=== PATIENT | female | born 1990 | race Caucasian/White ===

== ENCOUNTER 2023-01-10 09:14 | Emergency (ER) | payer OTHER ==
[~2023-01-10] VITALS: Ht 172.7 cm; Wt 54.2 kg
[2023-01-10 11:08] LABS: HEMATOCRIT 39.3 % (36.0-47.0); HEMOGLOBIN 13.3 g/dl (12.0-15.5); MEAN CORPUSCULAR HGB CONC 33.8 g/dl (32.0-36.5); MEAN CORPUSCULAR VOLUME 94.5 fl (80.0-96.0); PLATELET COUNT, AUTOMATED 293 10^3/uL (150-450); RED BLOOD COUNT 4.16 10^6/uL (4.00-5.40); WHITE BLOOD COUNT 7.2 10^3/uL (4.0-10.0)
[2023-01-10 11:25] LABS: HCG, SERUM QUALITATIVE POSITIVE (NEGATIVE)
[2023-01-10 12:58] VITALS: BP 91/62
== END 2023-01-10 13:06 | disposition home or self-care (01) ==
LOC: M ED 09:14
DX: O03.4 Incomplete spontaneous abortion without complication (principal); N93.9 Abnormal uterine and vaginal bleeding, unspecified; Z3A.01 Less than 8 weeks gestation of pregnancy

== ENCOUNTER → 2023-01-12 | Outpatient (CLI) | payer OTHER | LOC: M LAB 11:14 | PROVIDERS: ATTEND Emergency Medicine | DX: O03.4 Incomplete spontaneous abortion without complication (principal) ==

== ENCOUNTER 2024-12-17 11:41 | Emergency (ER) | payer OTHER ==
[~2024-12-17] VITALS: Ht 172.7 cm; Wt 65.5 kg
[2024-12-17 11:44] VITALS: TEMP 98.9
[2024-12-17] MEDS: ACETAMINOPHEN 325 MG TAB PO ONE (14:42)
[2024-12-17] MEDS: LIDOCAINE 5% (LIDODERM) PATCH TD ONE (14:42)
[2024-12-17 14:54] LABS: KETONE, URINE AUTO RFX 1+ mg/dL (NEGATIVE); MUCUS, URINE RFX SMALL (NEGATIVE); NITRITE, URINE AUTO RFX NEGATIVE (NEGATIVE); RBC, URINE AUTO RFX 11 /HPF (0-3); SQUAM EPITHELIAL CELL UR AURFX 18 /HPF (0-6)
[2024-12-17 15:00] LABS: LEUKOCYTE ESTERASE UR AUTO RFX 3+ (NEGATIVE); WBC, URINE AUTO RFX 11 /HPF (0-3)
[2024-12-17] MEDS ORDERED: LIDO5DIS41 TOP ×2 (15:23→17:25)
[2024-12-17] MEDS ORDERED: NITR100C3 PO ×2 (15:23→16:43)
[2024-12-17 17:15] VITALS: O2SAT 98
[2024-12-17 17:24] VITALS: BP 80/50
== END 2024-12-17 17:53 | disposition home or self-care (01) ==
LOC: M ED 11:41
DX: O26.892 Other specified pregnancy related conditions, second trimester (principal); M54.50 Low back pain, unspecified; N28.1 Cyst of kidney, acquired; F17.200 Nicotine dependence, unspecified, uncomplicated; Z3A.16 16 weeks gestation of pregnancy; Z79.2 Long term (current) use of antibiotics